=== PATIENT | female | born 1945 | race Caucasian/White ===

== ENCOUNTER 2017-01-03 00:31 | Observation (INO) ==
[2017-01-03 01:41] LABS: Bilirubin,Urine Negative (Negative); Blood,Urine Trace (Negative); Clarity,Urine Cloudy (Clear); Color,Urine Yellow (Yellow); Glucose,Urine (UA) Normal (Normal); Ketones,Urine Negative (Negative); Leukocyte Esterase,Urine Large (Negative); Nitrite,Urine Positive (Negative); PH,Urine 7.5 pH Units (5.0-8.0); Protein,Urine Negative (Neg-Trace); Specific Gravity,Urine 1.008 (1.010-1.025); Urobilinogen,Urine Normal (Normal)
[2017-01-03 01:44] LABS: Bacteria,Urine Many per hpf (None-Few); Hyaline Casts,Urine None Seen per lpf (None-Few); RBC,Urine 0-3 per hpf (0-3); Squamous Epithelial Cell,Urine None Seen per lpf (None-Few); WBC,Urine TNTC per hpf (0-3)
[2017-01-03 01:59] LABS: Basophils % 0.2 %; Eosinophils # 0.1 K/mcL (0.0-0.6); Eosinophils % 1.1 %; Hematocrit 23.4 % (35.3-44.9); Immature Granulocytes % 0.4 % (0-4); Lymphocytes # 2.9 K/mcL (0.6-4.6); Mean Corpuscular HGB Conc 32.1 g/dL (31.6-35.5); Mean Corpuscular Hemoglobin 26.3 pg (28.0-33.3); Mean Corpuscular Volume 82.1 fL (83.0-100.0); Mean Platelet Volume 9.1 fL (9.4-12.4); Monocytes # 0.5 K/mcL (0.0-1.3); Monocytes % 4.8 %; Neutrophils # 6.1 K/mcL (1.6-8.9); Platelet Count 368 K/mcL (140-400); Red Blood Count 2.85 M/mcL (3.82-4.97); Red Cell Distribution Width 16.8 % (11.5-14.5); Segmented Neutrophils % 63.5 %
[2017-01-03 02:06] LABS: INR 1.2; Prothrombin Time 12.5 Seconds (9.4-12.1)
[2017-01-03 02:16] LABS: BUN/Creatinine Ratio 25 (6-26); Blood Urea Nitrogen 15 mg/dL (7-20); Calcium 9.5 mg/dL (8.6-10.8); Carbon Dioxide 29 mEq/L (19-29); Chloride 94 mEq/L (98-109); Glucose 133 mg/dL (70-99); Osmolality,Calculated 277 (280-300); Potassium 4.1 mEq/L (3.5-4.5); Sodium 132 mEq/L (136-145); eGFR For African Americans > 60 (> 60); eGFR For Non-African Americans > 60 (> 60)
[2017-01-03 02:25] LABS: Hemoglobin 7.5 g/dL (11.5-15.4)
[2017-01-03] MEDS ORDERED: cefTRIAXone 1,000 MG in Water for inj. (sterile) 10 ML IVP ONE (02:44)
--- NOTE | 2017-01-03 02:44 | Emergency Department Note ---
START Narrative - START START: I examined this patient and my medical decision-making was reviewed with the Resident Physician. I agree with the documented findings, disposition and treatment plan as described except to the extent set forth below. 71 year old female who has a history of anemia without need for tranfusion and history of CHF and states that she has had increased swelling to her bilateral legs in a ddiitio nto right hip pain and overall weakness anf fatigue. Liyah has a hgb of 7.5 and UTI. We will treat her with rocephin for her UTI and do a fecal hemmocult to rule out GI bleed although her BUN/crn is normal. Liyah will be admitted to medicine.
[2017-01-03] MEDS ORDERED: *HR* OxyCODONE/APAP 5/325 TABLET PO ONE (03:02)
[2017-01-03 03:09] LABS: Albumin 2.9 g/dL (3.5-5.0); Albumin/Globulin Ratio 0.9 (1.1-2.2); Bilirubin,Direct 0.2 mg/dL (0.0-0.5); Bilirubin,Indirect 0.1 mg/dL (0.0-1.2); Bilirubin,Total 0.3 mg/dL (0.2-1.2); Globulin 3.4 g/dL (2.4-3.5); Total Protein 6.3 g/dL (6.0-8.3)
--- NOTE | 2017-01-03 03:54 | Emergency Department Note ---
Disposition Clinical Impression: Anemia Qualifiers: Anemia type: unspecified type Qualified Code(s): D64.9 - Anemia, unspecified UTI (urinary tract infection) Qualifiers: Urinary tract infection type: site unspecified Hematuria presence: without hematuria Qualified Code(s): N39.0 - Urinary tract infection, site not specified CHF (congestive heart failure) Qualifiers: Congestive heart failure type: unspecified congestive heart failure type Congestive heart failure chronicity: unspecified congestive heart failure chronicity Qualified Code(s): I50.9 - Heart failure, unspecified Disposition: Admitted As Inpatient Condition: Good Referrals: NONE,PCP [Primary Care Provider] - Forms: ED Satisfaction Letter General Adult HPI - General Chief complaint: ED Urogenital-Female Stated complaint: SWELLING TO LEGS Time Seen by Provider: 01/03/17 00:46 Source: patient, family Limitations: no limitations Nursing Notes Reviewed: Yes Vital Signs Reviewed: Yes - History of Present Illness HPI Narrative: Patient presents today for evaluation of multiple complaints. Patient has swelling to her legs bilaterally. Patient has +3 pitting edema through the thigh. Patient has complaints of urinary incontinence and urinating on herself. Patient states that she lives at home alone and takes care of herself. Patient has had worsening fatigue and a increasing difficult time getting around. Patient states that she occasionally feels cold but does not have objective fever. At the time of evaluation the patient is pale with concern for anemia. Patient will undergo further evaluation of possible UTI, CHF, anemia. Pain Scale: 8 - Related Data Previous Rx's Medication Instructions Recorded HYDROcodone/Acet 5/325 mg [Stigler 1 tab PO Q6H PRN #15 tab 08/22/16 5-325 mg] Allergies Allergy/AdvReac Type Severity Reaction Status Date / Time No Known Allergies Allergy Verified 01/03/17 00:32 All systems ED: reviewed and negative except as stated. Constitutional: Reports: chills, weakness. Denies: fever Cardiovascular: Reports: dyspnea on exertion, edema Respiratory: Reports: cough. Denies: dyspnea, wheezes Gastrointestinal: Denies: abdominal pain, nausea Genitourinary: Reports: frequency. 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 - Social History Smoking Status: Never smoker Smokeless Tobacco Status: No Alcohol use: Reports: none Drug use: Reports: none Physical Exam General appearance: Pale, weak, frail Eyes: anicteric sclerae, moist conjunctivae; PERRL HENT: Atraumatic; oropharynx clear with moist mucous membranes and no mucosal ulcerations Neck: Normal inspection; Trachea midline; FROM, supple Lungs: Rales with normal respiratory effort and no intercostal retractions CV: Tachycardia, no MRGs Abdomen: Soft, non-tender; no rebound or gaurding Extremities: Significant bilateral pitting edema through to the proximal thigh Skin: Normal temperature; no rash, ulcers or lesions Psych: Appropriate mood and affect Neuro: alert and oriented to person, place - General Limitations: no limitations General appearance: alert, in no apparent distress Course - Reevaluation(s) Reevaluation #1: Patient with anemia rectal exam performed. The patient's rectal vault was completely devoid of stool. Study not sent. Patient will need a guaiac for further evaluation of possible GI bleed. Reevaluation #2: Significant UTI. Ceftriaxone given. Patient's chest x-ray shows pulmonary edema without elevated BNP. Lasix not given at this time. No respiratory distress. Will allow hospitalist team to further discuss this management. - Consultations Consultation #1: Discussed with hospitalist. Dr. Emil jacobson Vital Signs Temperature 98.2 F 01/03/17 00:32 Pulse Rate 110 01/03/17 00:32 Respiratory Rate 16 01/03/17 00:32 Blood Pressure 158/72 01/03/17 00:32 O2 Sat by Pulse Oximetry 91 01/03/17 00:32 Temperature 98.2 F 01/03/17 00:32 Pulse Rate 98 01/03/17 02:21 Respiratory Rate 16 01/03/17 02:21 Blood Pressure 131/59 01/03/17 02:21 O2 Sat by Pulse Oximetry 99 01/03/17 02:21 Oxygen Delivery Oxygen Delivery Nasal Cannula Medical Decision Making - Medical Records Medical records reviewed: Yes I reviewed the patient's medical records. - Lab Data Lab results reviewed: Yes I reviewed the patient's lab results. Result diagrams: 01/03/17 01:46 01/03/17 01:46 Lab Results 01/03/17 01/03/1701/03/17 Range/Units 01:32 01:46 01:46 WBC (4.3-11.1) K/mcL RBC (3.82-4.97) M/mcL Hgb (11.5-15.4) g/dL Hct (35.3-44.9) % MCV (83.0-100.0) fL MCH (28.0-33.3) pg MCHC (31.6-35.5) g/dL RDW (11.5-14.5) % Plt Count (140-400) K/mcL MPV (9.4-12.4) fL Immature Gran % (0-4) % Seg Neutrophils % % Lymphocytes % % Monocytes % % Eosinophils % % Basophils % % Neutrophils # (1.6-8.9) K/mcL Lymphocytes # (0.6-4.6) K/mcL Monocytes # (0.0-1.3) K/mcL Eosinophils # (0.0-0.6) K/mcL Basophils # (0.0-0.2) K/mcL Immature Plt Fraction (1.1-6.1) % PT 12.5 H (9.4-12.1) Seconds INR 1.2 Sodium (136-145) mEq/L Potassium (3.5-4.5) mEq/L Chloride (98-109) mEq/L Carbon Dioxide (19-29) mEq/L BUN (7-20) mg/dL Creatinine (0.57-1.11) mg/dL Est GFR ( Amer) (> 60) Est GFR (Non-Af Amer) (> 60) BUN/Creatinine Ratio (6-26) Glucose (70-99) mg/dL Calculated Osmolality (280-300) Calcium (8.6-10.8) mg/dL Total Bilirubin 0.3 (0.2-1.2) mg/dL Direct Bilirubin 0.2 (0.0-0.5) mg/dL Indirect Bilirubin 0.1 (0.0-1.2) mg/dL AST 12 (5-34) Units/L ALT 6 (0-55) Units/L Alkaline Phosphatase 64 (38-126) Units/L Troponin I (0-0.03) ng/mL B-Natriuretic Peptide (0-100) pg/mL Serum Total Protein 6.3 (6.0-8.3) g/dL Albumin 2.9 L (3.5-5.0) g/dL Globulin 3.4 (2.4-3.5) g/dL Albumin/Globulin Ratio 0.9 L (1.1-2.2) Urine Color Yellow (Yellow) Urine Clarity Cloudy A (Clear) Urine pH 7.5 (5.0-8.0) pH Units Ur Specific [place] 1.008 L (1.010-1.025) Urine Protein Negative (Neg-Trace) mg/dL Urine Glucose (UA) Normal (Normal) mg/dL Urine Ketones Negative (Negative) mg/dL Urine Blood Trace H (Negative) Urine Nitrite Positive A (Negative) Urine Bilirubin Negative (Negative) Urine Urobilinogen Normal (Normal) mg/dL Ur Leukocyte Esterase Large H (Negative) Urine Microscopic RBC 0-3 (0-3) per hpf Urine Microscopic WBC TNTC H (0-3) per hpf Ur Squamous Epith Cells None Seen (None-Few) per lpf Urine Bacteria Many H (None-Few) per hpf Hyaline Casts None Seen (None-Few) per lpf Ur Culture Indicated? YES A (NO) 01/03/17 01/03/17 01/03/17 Range/Units 01:46 01:46 01:46 WBC 9.6 (4.3-11.1) K/mcL RBC 2.85 L (3.82-4.97) M/mcL Hgb 7.5 L (11.5-15.4) g/dL Hct 23.4 L (35.3-44.9) % MCV 82.1 L (83.0-100.0) fL MCH 26.3 L (28.0-33.3) pg MCHC 32.1 (31.6-35.5) g/dL RDW 16.8 H (11.5-14.5) % Plt Count 368 (140-400) K/mcL MPV 9.1 L (9.4-12.4) fL Immature Gran % 0.4 (0-4) % Seg Neutrophils % 63.5 % Lymphocytes % 30.0 % Monocytes % 4.8 % Eosinophils % 1.1 % Basophils % 0.2 % Neutrophils # 6.1 (1.6-8.9) K/mcL Lymphocytes # 2.9 (0.6-4.6) K/mcL Monocytes # 0.5 (0.0-1.3) K/mcL Eosinophils # 0.1 (0.0-0.6) K/mcL Basophils # 0.0 (0.0-0.2) K/mcL Immature Plt Fraction 2.0 (1.1-6.1) % PT (9.4-12.1) Seconds INR Sodium 132 L (136-145) mEq/L Potassium 4.1 (3.5-4.5) mEq/L Chloride 94 L (98-109) mEq/L Carbon Dioxide 29 (19-29) mEq/L BUN 15 (7-20) mg/dL Creatinine 0.61 (0.57-1.11) mg/dL Est GFR ( Amer) > 60 (> 60) Est GFR (Non-Af Amer) > 60 (> 60) BUN/Creatinine Ratio 25 (6-26) Glucose 133 H (70-99) mg/dL Calculated Osmolality 277 L (280-300) Calcium 9.5 (8.6-10.8) mg/dL Total Bilirubin (0.2-1.2) mg/dL Direct Bilirubin (0.0-0.5) mg/dL Indirect Bilirubin (0.0-1.2) mg/dL AST (5-34) Units/L ALT (0-55) Units/L Alkaline Phosphatase (38-126) Units/L Troponin I (0-0.03) ng/mL B-Natriuretic Peptide 152 H (0-100) pg/mL Serum Total Protein (6.0-8.3) g/dL Albumin (3.5-5.0) g/dL Globulin (2.4-3.5) g/dL Albumin/Globulin Ratio (1.1-2.2) Urine Color (Yellow) Urine Clarity (Clear) Urine pH (5.0-8.0) pH Units Ur Specific [place] (1.010-1.025) Urine Protein (Neg-Trace) mg/dL Urine Glucose (UA) (Normal) mg/dL Urine Ketones (Negative) mg/dL Urine Blood (Negative) Urine Nitrite (Negative) Urine Bilirubin (Negative) Urine Urobilinogen (Normal) mg/dL Ur Leukocyte Esterase (Negative) Urine Microscopic RBC (0-3) per hpf Urine Microscopic WBC (0-3) per hpf Ur Squamous Epith Cells (None-Few) per lpf Urine Bacteria (None-Few) per hpf Hyaline Casts (None-Few) per lpf Ur Culture Indicated? (NO) 01/03/17 Range/Units 01:46 WBC (4.3-11.1) K/mcL RBC (3.82-4.97) M/mcL Hgb (11.5-15.4) g/dL Hct (35.3-44.9) % MCV (83.0-100.0) fL MCH (28.0-33.3) pg MCHC (31.6-35.5) g/dL RDW (11.5-14.5) % Plt Count (140-400) K/mcL MPV (9.4-12.4) fL Immature Gran % (0-4) % Seg Neutrophils % % Lymphocytes % % Monocytes % % Eosinophils % % Basophils % % Neutrophils # (1.6-8.9) K/mcL Lymphocytes # (0.6-4.6) K/mcL Monocytes # (0.0-1.3) K/mcL Eosinophils # (0.0-0.6) K/mcL Basophils # (0.0-0.2) K/mcL Immature Plt Fraction (1.1-6.1) % PT (9.4-12.1) Seconds INR Sodium (136-145) mEq/L Potassium (3.5-4.5) mEq/L Chloride (98-109) mEq/L Carbon Dioxide (19-29) mEq/L BUN (7-20) mg/dL Creatinine (0.57-1.11) mg/dL Est GFR ( Amer) (> 60) Est GFR (Non-Af Amer) (> 60) BUN/Creatinine Ratio (6-26) Glucose (70-99) mg/dL Calculated Osmolality (280-300) Calcium (8.6-10.8) mg/dL Total Bilirubin (0.2-1.2) mg/dL Direct Bilirubin (0.0-0.5) mg/dL Indirect Bilirubin (0.0-1.2) mg/dL AST (5-34) Units/L ALT (0-55) Units/L Alkaline Phosphatase (38-126) Units/L Troponin I 0.00 (0-0.03) ng/mL B-Natriuretic Peptide (0-100) pg/mL Serum Total Protein (6.0-8.3) g/dL Albumin (3.5-5.0) g/dL Globulin (2.4-3.5) g/dL Albumin/Globulin Ratio (1.1-2.2) Urine Color (Yellow) Urine Clarity (Clear) Urine pH (5.0-8.0) pH Units Ur Specific [place] (1.010-1.025) Urine Protein (Neg-Trace) mg/dL Urine Glucose (UA) (Normal) mg/dL Urine Ketones (Negative) mg/dL Urine Blood (Negative) Urine Nitrite (Negative) Urine Bilirubin (Negative) Urine Urobilinogen (Normal) mg/dL Ur Leukocyte Esterase (Negative) Urine Microscopic RBC (0-3) per hpf Urine Microscopic WBC (0-3) per hpf Ur Squamous Epith Cells (None-Few) per lpf Urine Bacteria (None-Few) per hpf Hyaline Casts (None-Few) per lpf Ur Culture Indicated? (NO) - Radiology Data Radiology results reviewed: Yes I reviewed the patient's radiology results. - EKG Data EKG #1 EKG attestation: Yes I reviewed and interpreted this EKG. EKG results narrative: EKG shows sinus tachycardia with nonspecific T-wave abnormalities. Ventricular rate 110. AL 128. QRS 90. QTC 379. Patient has no significant ST elevations or depressions. No EKG for comparison.
--- NOTE | 2017-01-03 05:16 | Internal Med History&Physical ---
Date of Encounter: 01/03/17 Time of Encounter: 04:00 Assessment and Plan (1) Acute cystitis with hematuria Current visit: Yes Status: Acute -Patient with pyuria on urinalysis. -Continue IV ceftriaxone. (2) Anemia Current visit: Yes Status: Acute -Patient with a hemoglobin of 7.5. -Will order stool occult test. -Will transfuse patient 2 units of packed red blood cells. Qualifiers: Anemia type: iron deficiency Qualified Code(s): D50.9 - Iron deficiency anemia, unspecified (3) CHF (congestive heart failure) Current visit: Yes Status: Acute -Patient with bilateral lower extremity edema on exam and was found to have mild pulmonary edema on chest x-ray with a slightly elevated BNP of 152. -Will order echocardiogram and give patient IV Lasix 40 mg 1 Qualifiers: Congestive heart failure type: unspecified congestive heart failure type Congestive heart failure chronicity: unspecified congestive heart failure chronicity Qualified Code(s): I50.9 - Heart failure, unspecified (4) Right hip pain Current visit: Yes Status: Acute -Patient complains of right hip/leg pain. -Hip x-ray showed no acute osseous abnormality; status post internal fixation of the right hip. -Consult physical therapy for possible placement to correction facility for strength/reconditioning in addition to rehabilitation of right hip. (5) Diabetes Current visit: Yes Status: Acute -She reports a history of diabetes. -Monitor blood glucose levels. Qualifiers: Qualified Code(s): E11.9 - Type 2 diabetes mellitus without complications (6) Mood disorder Current visit: Yes Status: Acute -Patient emotionally labile during exam. -Will continue to monitor. (7) DVT prophylaxis Current visit: Yes Status: Acute -SCDs Internal Medicine - H&P: HPI Admitted From: Home Plans for Post Hospital Care: Transfer [facility] Facility History of present illness: Patient is a 71-year-old female with past medical history significant for diabetes, iron deficiency anemia, mood disorder and CHF who presents to the ER on 01/03/17 with right leg pain. Patient is a very poor historian and lives by herself and grandchildren who were at the bedside without much help with history. Patient was very emotionally labile on exam but reports of vague symptoms of not feeling well in addition to right leg/hip discomfort. Grandchildren who are at the bedside and checks on her periodically were concerned about her lower extremity edema and decided to bring her into the ER for evaluation. In the ER, patient was found to have pyuria on urinalysis in addition to anemia. In addition patient was found to have mild pulmonary edema on chest x- ray with a slightly elevated BNP of 152. Hip x-ray showed no acute osseous abnormality; status post internal fixation of the right hip. Patient will be admitted to the medical surgical floor for UTI, anemia and CHF exacerbation. Past Med Surg Social Fam HX - Past Medical History Medical history: diabetes, GERD, hyperlipidemia, hypertension Psychiatric history: anxiety - Social History Smoking Status: Never smoker Smokeless Tobacco Status: No Alcohol use: none Drug use: none Internal Medicine - H&P: Meds HYDROcodone/Acet 5/325 mg [[place] 5-325 mg] 1 tab PO Q6H PRN #15 tab 08/22/16 [Rx ] 3 Allergy/AdvReac Type Severity Reaction Status Date / Time No Known Allergies Allergy Verified 01/03/17 00:32 All Systems PM: A 10-system review of systems was performed and is negative for pertinent findings except as documented above in the HPI. - Constitutional Vitals: Temp Pulse Resp BP Pulse Ox 98.2 F 98 18 148/72 99 01/03/17 00:32 01/03/17 02:21 01/03/17 04:07 01/03/17 04:07 01/03/17 02:21 General appearance: Present: A&O X 3 - Head Head exam: Present: normocephalic - Eye Eye exam: Present: normal appearance - ENT ENT exam: Present: mucous membranes dry - Respiratory Respiratory exam: Present: CTAB. Absent: accessory muscle use, rales, rhonchi, wheezes - Cardiovascular Cardiovascular exam: Present: RRR, +S1, +S2. Absent: diastolic murmur, gallop, rubs, systolic murmur - GI/Abdominal GI/Abdominal exam: Present: normal bowel sounds, soft, no peritoneal signs. Absent: distended, tenderness - Expanded Lower Extremities Exam Lower Leg exam: Present: swelling (Bilateral lower extremity edema) - Neurological Exam Neurological exam: Present: oriented X3 - Psychiatric Psychiatric exam: Present: anxious, depressed (Emotionally labile) - Skin Additional comments: Patient appears pale Internal Med - H&P Results - Labs CBC & Chem 7: 01/03/17 01:46 01/03/17 01:46
[2017-01-03] MEDS ORDERED: Furosemide 40 MG/4 ML VIAL IVP ONE (05:34)
[2017-01-03] MEDS ORDERED: Naloxone 0.4 MG/ML INJ IVP PRN (05:45)
[2017-01-03 06:57] LABS: Basophils % 0.5 %; Eosinophils # 0.1 K/mcL (0.0-0.6); Eosinophils % 1.4 %; Hematocrit 24.6 % (35.3-44.9); Hemoglobin 7.7 g/dL (11.5-15.4); Immature Granulocytes % 0.5 % (0-4); Lymphocytes # 3.3 K/mcL (0.6-4.6); Lymphocytes % 38.3 %; Mean Corpuscular HGB Conc 31.3 g/dL (31.6-35.5); Mean Corpuscular Hemoglobin 25.8 pg (28.0-33.3); Mean Corpuscular Volume 82.6 fL (83.0-100.0); Mean Platelet Volume 9.3 fL (9.4-12.4); Monocytes # 0.5 K/mcL (0.0-1.3); Monocytes % 5.7 %; Neutrophils # 4.7 K/mcL (1.6-8.9); Platelet Count 307 K/mcL (140-400); Red Blood Count 2.98 M/mcL (3.82-4.97); Red Cell Distribution Width 16.9 % (11.5-14.5); Segmented Neutrophils % 53.6 %
[2017-01-03] MEDS: cefTRIAXone 1,000 MG in Water for inj. (sterile) 10 ML IVP SCH (09:34)
[2017-01-03] MEDS ORDERED: SUMAtriptan succinate 50 MG TABLET PO PRN (12:04)
[2017-01-03] MEDS ORDERED: traMADol 50 MG TABLET PO PRN (12:04)
[2017-01-03] MEDS ORDERED: Dextrose Gel 15 GM PO PRN ×2 (12:06)
[2017-01-03] MEDS ORDERED: *HR* Dextrose 50 % in Water (Syg) 50 ML SYRINGE IVP PRN (12:06)
[2017-01-03] MEDS ORDERED: D5% in Water 1,000 ML IVC PRN (12:06)
--- NOTE | 2017-01-03 12:13 | Event Note ---
Date of Encounter: 01/03/17 Time of Encounter: 11:15 Patient is a 71y/o female admitted for management of CHF exacerbation, symptomatic anemia, and UTI. Patient seen and examined at bedside. Reports of improvement in her shortness of breath, saturating well on nasal cannula, states at home she only wears oxygen at bedtime. Noted to have drop in H&H, pt to receive 2units PRBC transfusions. Will closely monitor for signs of volume overload Has history of iron deficiency anemia and is currently on iron supplementation at home, denies any acute blood in stools. Will obtain iron studies, ferritin, vit B12, and folate levels prior to blood transfusion Will continue IV diuresis at this time IV abx for UTI. f/u urine cultures will resume all other home medications.
[2017-01-03 13:01] LABS: % Iron Saturation 9 % (15-50); Iron 26 mcg/dL (50-170); Transferrin 204 mg/dL (180-382)
[2017-01-03 13:24] LABS: Ferritin 75 ng/ml (5-204)
[2017-01-03 13:37] LABS: Folate 14.1 ng/mL (7.0-31.4)
[2017-01-03] MEDS: *HR* LORazepam 0.5 MG TABLET PO PRN ×2 (14:00→22:13)
[2017-01-03] MEDS: *HR* OxyCODONE/APAP 5/325 TABLET PO PRN ×2 (14:00→19:19)
[2017-01-03] MEDS: Insulin LISPRO 300 UNITS/3 ML VIAL SQ SCH ×2 (17:08→22:12)
[2017-01-03] MEDS: Furosemide 20 MG/2 ML VIAL IVP SCH (17:09)
[2017-01-03] MEDS: traZODone 50 MG TABLET PO SCH (22:13)
[2017-01-03] MEDS ORDERED: 0.9 % Sodium Chloride 250 ML ONE (22:51)
[2017-01-04] MEDS: *HR* OxyCODONE/APAP 5/325 TABLET PO PRN ×4 (01:59→21:49)
[2017-01-04 04:42] LABS: Basophils % 0.5 %; Eosinophils # 0.1 K/mcL (0.0-0.6); Eosinophils % 1.4 %; Hematocrit 27.6 % (35.3-44.9); Hemoglobin 8.9 g/dL (11.5-15.4); Immature Granulocytes % 0.3 % (0-4); Lymphocytes # 2.4 K/mcL (0.6-4.6); Lymphocytes % 40.5 %; Mean Corpuscular HGB Conc 32.2 g/dL (31.6-35.5); Mean Corpuscular Hemoglobin 26.4 pg (28.0-33.3); Mean Corpuscular Volume 81.9 fL (83.0-100.0); Mean Platelet Volume 9.4 fL (9.4-12.4); Monocytes # 0.6 K/mcL (0.0-1.3); Monocytes % 10.5 %; Neutrophils # 2.8 K/mcL (1.6-8.9); Platelet Count 317 K/mcL (140-400); Red Blood Count 3.37 M/mcL (3.82-4.97); Red Cell Distribution Width 16.5 % (11.5-14.5); Segmented Neutrophils % 46.8 %
[2017-01-04 04:57] LABS: Phosphorous 3.7 mg/dL (2.3-4.7)
[2017-01-04 05:00] LABS: BUN/Creatinine Ratio 23 (6-26); Blood Urea Nitrogen 14 mg/dL (7-20); Calcium 9.7 mg/dL (8.6-10.8); Carbon Dioxide 30 mEq/L (19-29); Chloride 95 mEq/L (98-109); Glucose 148 mg/dL (70-99); Osmolality,Calculated 283 (280-300); Sodium 135 mEq/L (136-145); eGFR For African Americans > 60 (> 60); eGFR For Non-African Americans > 60 (> 60)
--- NOTE | 2017-01-04 05:45 | Electrocardiograph Report ---
[address] [address] Test Date: 2017-01-03 Pat Name: Laxmi Rand Department: 103 Room: [facility] Gender: F Chemistry Specialist: : [id number] Requested By: Inocente Mai Order Number: [id number] Reading MD: Montrell Cameron MD Measurements Intervals [place] Rate: 110 P: 52 GA: 128 QRS: 52 QRSD: 90 T: 49 QT: 314 QTc: 379 Interpretive Statements SINUS TACHYCARDIA Electronically Signed On 01-04-2017 5:43:49 EST by Montrell Cameron MD
[2017-01-04] MEDS: Insulin LISPRO 300 UNITS/3 ML VIAL SQ SCH ×4 (07:41→21:48)
[2017-01-04] MEDS: amLODIPine 5 MG TABLET PO SCH (08:25)
[2017-01-04] MEDS: cefTRIAXone 1,000 MG in Water for inj. (sterile) 10 ML IVP SCH (08:27)
[2017-01-04] MEDS: Furosemide 20 MG/2 ML VIAL IVP SCH ×2 (08:29→16:54)
[2017-01-04] MEDS: *HR* LORazepam 0.5 MG TABLET PO PRN (11:50)
--- NOTE | 2017-01-04 12:55 | Internal Med Progress Note ---
Date of Encounter: 01/04/17 Time of Encounter: 11:04 - Assessment and plan (1) CHF exacerbation Current Visit: Yes Status: Acute Assessment and plan: Echo: LVEF 60-65% with Mild LV diastolic dysfunction, moderate pulmonary hypertension will continue IV diuresis Monitor I/Os, daily weight, fluid restriction diet O2 supplementation as needed will continue to monitor Qualifiers: Congestive heart failure type: diastolic Qualified Code(s): I50.33 - Acute on chronic diastolic (congestive) heart failure (2) Anemia Current Visit: Yes Status: Acute Assessment and plan: History of iron deficiency anemia anemia workup consistent with Iron def awaiting FOBT s/p one unit PRBC transfusion, patient refused second unit repeat H&H within acceptable range no acute bleeding reported will continue to closely monitor Qualifiers: Anemia type: iron deficiency Iron deficiency anemia type: unspecified iron deficiency Qualified Code(s): D50.9 - Iron deficiency anemia, unspecified (3) UTI (urinary tract infection) Current Visit: Yes Status: Acute Assessment and plan: Urine culture prelim positive for gram negative khai will continue IV ceftriaxone f/u official urine cultures Qualifiers: Urinary tract infection type: site unspecified Hematuria presence: without hematuria Qualified Code(s): N39.0 - Urinary tract infection, site not specified (4) Diabetes Current Visit: Yes Status: Chronic Assessment and plan: SS insulin algorithm monitor FS and BG ADA diet Qualifiers: Diabetes mellitus type: type 2 Diabetes mellitus complication status: with unspecified complications Diabetes mellitus senior care insulin use: unspecified terminal clerk insulin use status Qualified Code(s): E11.8 - Type 2 diabetes mellitus with unspecified complications (5) DVT prophylaxis Current Visit: Yes Status: Acute Assessment and plan: SCD (6) Hypomagnesemia Current Visit: Yes Status: Acute Assessment and plan: Mg supplemented continue to monitor electrolytes and replace as needed - Subjective Interval history: Patient seen and examined at bedside. Sitting in chair and reports of feeling better compared to previous day. Reports of generalized body pain and states she takes her pain medications on regular basis at home. REports of being constipated but is passing gas. 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 Absent: diastolic murmur, gallop, rubs, systolic murmur - GI/Abdominal GI/Abdominal exam: Present: normal bowel sounds, soft, no peritoneal signs. Absent: distended, tenderness - Extremities Exam Extremities exam: Present: pedal edema, warm, radial pulses palpable and symmetrical. Absent: calf tenderness - Neurological Exam Neurological exam: Present: alert, oriented X3 - Psychiatric Psychiatric exam: Present: normal affect, normal mood Internal Medicine: Result - Labs CBC & Chem 7: 01/04/17 04:03 01/04/17 04:03 Labs: Short CBC 01/04/17 Range/Units 04:03 WBC 5.9 (4.3-11.1) K/mcL Hgb 8.9 L (11.5-15.4) g/dL Hct 27.6 L (35.3-44.9) % Plt Count 317 (140-400) K/mcL Neutrophils # 2.8 (1.6-8.9) K/mcL BMP 01/04/17 04:03 Sodium 135 L Potassium 4.0 Chloride 95 L Carbon Dioxide 30 H BUN 14 Creatinine 0.62 Glucose 148 H Calcium 9.7 - ABG Interpretation ABG results: PT/INR, D-dimer PT 12.5 Seconds (9.4-12.1) H 01/03/17 01:46 - Impressions Impressions Echocardiogram 01/03/17 05:35 Impressions: LVEF 60-65%. Normal LV chamber size, wall thickness and function. Mild left ventricular diastolic dysfunction. Normal right ventricular structure and function. Moderate pulmonary hypertension. Estimated RVSP is 51 mmHg. No significant valvular dysfunction. Left Ventricular Wall Motion: Rest Echo Findings All wall segments showed normal motion. Findings: Study Quality * Technically adequate exam. ECG Findings * Normal sinus rhythm. Left Ventricle * LVEF 60-65%. * Normal LV chamber size, wall thickness and function. * Mild left ventricular diastolic dysfunction. Right Ventricle * Normal right ventricular structure and function. Left Atrium * Mildly dilated left atrium. Right Atrium * Normal right atrial size. Aortic Valve * No aortic stenosis. * No aortic regurgitation. * Aortic valve not well visualized. Mitral Valve * Normal mitral valve structure and function. * No mitral stenosis. * No mitral regurgitation. Tricuspid Valve * Normal tricuspid valve structure and function. * Trace tricuspid regurgitation. * Moderate pulmonary hypertension. * Estimated RVSP is 51 mmHg. * Estimated RA pressure is 5 mmHg. Pulmonic Valve * Pulmonic valve is not well visualized. * No pulmonic regurgitation. Aorta * Normally sized aortic root. Pericardium * The pericardium appears normal. IVC * Normal IVC dimensions and inspiratory collapse. Pulmonary Artery * Normal visualized portions of the main pulmonary artery. - VTE Documentation of Mechanical Device: Venous foot pump, device Consult Discharge Plan - Plan Referrals: NONE,PCP [Primary Care Provider] -
[2017-01-04] MEDS: Sennosides/Docusate Sodium TABLET PO SCH (21:49)
[2017-01-04] MEDS: traZODone 50 MG TABLET PO SCH (21:49)
[2017-01-05] MEDS: *HR* OxyCODONE/APAP 5/325 TABLET PO PRN ×4 (05:07→21:02)
[2017-01-05 05:32] LABS: Basophils % 0.3 %; Eosinophils # 0.2 K/mcL (0.0-0.6); Hematocrit 30.2 % (35.3-44.9); Hemoglobin 9.5 g/dL (11.5-15.4); Immature Granulocytes % 0.5 % (0-4); Lymphocytes % 39.2 %; Mean Corpuscular HGB Conc 31.5 g/dL (31.6-35.5); Mean Corpuscular Hemoglobin 26.1 pg (28.0-33.3); Mean Platelet Volume 9.5 fL (9.4-12.4); Monocytes # 0.5 K/mcL (0.0-1.3); Neutrophils # 3.9 K/mcL (1.6-8.9); Platelet Count 368 K/mcL (140-400); Red Blood Count 3.64 M/mcL (3.82-4.97); Red Cell Distribution Width 16.7 % (11.5-14.5)
[2017-01-05 05:46] LABS: BUN/Creatinine Ratio 24 (6-26); Blood Urea Nitrogen 15 mg/dL (7-20); Calcium 9.7 mg/dL (8.6-10.8); Carbon Dioxide 33 mEq/L (19-29); Chloride 96 mEq/L (98-109); Glucose 172 mg/dL (70-99); Magnesium 1.5 mg/dL (1.6-2.6); Osmolality,Calculated 287 (280-300); Phosphorous 3.5 mg/dL (2.3-4.7); Potassium 3.9 mEq/L (3.5-4.5); Sodium 136 mEq/L (136-145); eGFR For African Americans > 60 (> 60); eGFR For Non-African Americans > 60 (> 60)
[2017-01-05] MEDS: Sennosides/Docusate Sodium TABLET PO SCH ×2 (08:38→21:02)
[2017-01-05] MEDS: Insulin LISPRO 300 UNITS/3 ML VIAL SQ SCH ×4 (08:39→21:03)
[2017-01-05] MEDS: amLODIPine 5 MG TABLET PO SCH (08:39)
[2017-01-05] MEDS: cefTRIAXone 1,000 MG in Water for inj. (sterile) 10 ML IVP SCH (08:40)
[2017-01-05] MEDS: Furosemide 20 MG/2 ML VIAL IVP SCH ×2 (08:44→15:26)
[2017-01-05] MEDS: *HR* LORazepam 0.5 MG TABLET PO PRN (13:11)
--- NOTE | 2017-01-05 15:30 | Internal Med Progress Note ---
Date of Encounter: 01/05/17 Time of Encounter: 12:00 - Assessment and plan (1) CHF (congestive heart failure) Current Visit: Yes Status: Acute Assessment and plan: Improving. Patient having good urine output. This was far she has had almost 6 L negative fluid balance. We will continue Lasix intravenously for today. Plan to transition to oral Lasix beginning tomorrow. Moderate risk for complications Qualifiers: Congestive heart failure type: diastolic Congestive heart failure chronicity: acute on chronic Qualified Code(s): I50.33 - Acute on chronic diastolic (congestive) heart failure (2) Anemia Current Visit: Yes Status: Acute Assessment and plan: Anemia improved after blood transfusion. Continue iron supplementation Qualifiers: Anemia type: iron deficiency Iron deficiency anemia type: unspecified iron deficiency Qualified Code(s): D50.9 - Iron deficiency anemia, unspecified (3) Diabetes Current Visit: Yes Status: Chronic Assessment and plan: Pre-meal blood sugars are elevated. We will increase sliding scale coverage. Qualifiers: Diabetes mellitus type: type 2 Diabetes mellitus complication status: with unspecified complications Diabetes mellitus joint terminal attack controller insulin use: unspecified joint terminal attack controller insulin use status Qualified Code(s): E11.8 - Type 2 diabetes mellitus with unspecified complications (4) DVT prophylaxis Current Visit: Yes Status: Acute Assessment and plan: With SCDs (5) Hypomagnesemia Current Visit: Yes Status: Acute Assessment and plan: Improving. We will replete orally (6) UTI (urinary tract infection) Current Visit: Yes Status: Acute Assessment and plan: With Klebsiella pneumonia. Currently on Rocephin. We will transition to oral antibiotics Qualifiers: Urinary tract infection type: site unspecified Hematuria presence: without hematuria Qualified Code(s): N39.0 - Urinary tract infection, site not specified - Subjective Interval history: Patient is awake and alert. Denies any shortness of breath or chest pain. Complains of swelling in both her lower extremities which is improving. Denies any dysuria. No nausea or vomiting. - Constitutional Vitals: Temp Pulse Resp BP Pulse Ox 97.9 F 84 16 127/76 95 01/05/17 14:18 01/05/17 14:18 01/05/17 14:18 01/05/17 14:18 01/05/17 14:18 General appearance: Present: cooperative, A&O X 3, no acute distress, answers questions appropriately - Neck Neck exam general surgery: Present: supple, trachea midline. Absent: lymphadenopathy - Respiratory Respiratory exam: Present: CTAB. Absent: accessory muscle use, rales, rhonchi, wheezes - Cardiovascular Cardiovascular exam: Present: RRR, +S1, +S2. Absent: diastolic murmur, gallop, rubs, systolic murmur - Extremities Exam Extremities exam: Present: pedal edema (Bilateral pitting pedal edema), warm, radial pulses palpable and symmetrical. Absent: calf tenderness, cyanotic - Neurological Exam Neurological exam: Present: alert, oriented X3, no focal deficits. Absent: facial droop, speech deficit - Skin Skin exam: Present: dry, intact Internal Medicine: Result - Labs CBC & Chem 7: 01/05/17 04:40 01/05/17 04:40 Labs: Short CBC 01/05/17 Range/Units 04:40 WBC 7.5 (4.3-11.1) K/mcL Hgb 9.5 L (11.5-15.4) g/dL Hct 30.2 L (35.3-44.9) % Plt Count 368 (140-400) K/mcL Neutrophils # 3.9 (1.6-8.9) K/mcL BMP 01/05/17 04:40 Sodium 136 Potassium 3.9 Chloride 96 L Carbon Dioxide 33 H BUN 15 Creatinine 0.62 Glucose 172 H Calcium 9.7 - ABG Interpretation ABG results: PT/INR, D-dimer PT 12.5 Seconds (9.4-12.1) H 01/03/17 01:46 - VTE Documentation of Mechanical Device: Intermittent pneumatic compression device Consult Discharge Plan - Plan Referrals: NONE,PCP [Primary Care Provider] -
[2017-01-05] MEDS: Furosemide 20 MG TABLET PO SCH (18:39)
[2017-01-05] MEDS ORDERED: Acetaminophen 325 MG TABLET PO PRN (20:52)
[2017-01-05] MEDS: traZODone 50 MG TABLET PO SCH (21:03)
[2017-01-06] MEDS: *HR* LORazepam 0.5 MG TABLET PO PRN (04:39)
[2017-01-06 05:39] LABS: BUN/Creatinine Ratio 28 (6-26); Blood Urea Nitrogen 17 mg/dL (7-20); Calcium 9.7 mg/dL (8.6-10.8); Carbon Dioxide 34 mEq/L (19-29); Chloride 95 mEq/L (98-109); Glucose 161 mg/dL (70-99); Osmolality,Calculated 283 (280-300); Potassium 3.9 mEq/L (3.5-4.5); Sodium 134 mEq/L (136-145); eGFR For African Americans > 60 (> 60); eGFR For Non-African Americans > 60 (> 60)
[2017-01-06] MEDS: *HR* OxyCODONE/APAP 5/325 TABLET PO PRN (05:48)
[2017-01-06 07:16] VITALS: BP 147/67
[2017-01-06] MEDS: Furosemide 20 MG TABLET PO SCH (08:29)
[2017-01-06] MEDS: Sennosides/Docusate Sodium TABLET PO SCH (08:29)
[2017-01-06] MEDS: amLODIPine 5 MG TABLET PO SCH (08:29)
[2017-01-06] MEDS: Insulin LISPRO 300 UNITS/3 ML VIAL SQ SCH (08:40)
[2017-01-06] MEDS ORDERED: levoFLOXacin 500 MG TABLET PO SCH (09:00)
--- NOTE | 2017-01-06 10:35 | Discharge Summary ---
Date of Encounter: 01/06/17 Time of Encounter: 10:31 - Discharge Diagnosis (1) CHF (congestive heart failure) Priority: Primary Status: Acute Qualifiers: Congestive heart failure type: diastolic Congestive heart failure chronicity: acute on chronic Qualified Code(s): I50.33 - Acute on chronic diastolic (congestive) heart failure (2) UTI (urinary tract infection) Priority: Secondary Status: Acute Qualifiers: Urinary tract infection type: acute cystitis Hematuria presence: without hematuria Qualified Code(s): N30.00 - Acute cystitis without hematuria (3) Anemia Priority: Secondary Status: Acute Qualifiers: Anemia type: iron deficiency Iron deficiency anemia type: unspecified iron deficiency Qualified Code(s): D50.9 - Iron deficiency anemia, unspecified (4) Diabetes Priority: Secondary Status: Chronic Qualifiers: Diabetes mellitus type: type 2 Diabetes mellitus complication status: with unspecified complications Diabetes mellitus termite renewal inspector insulin use: unspecified halfway insulin use status Qualified Code(s): E11.8 - Type 2 diabetes mellitus with unspecified complications (5) DVT prophylaxis Priority: Secondary Status: Acute (6) Hypomagnesemia Priority: Secondary Status: Acute - Discharge Medications Prescriptions: Furosemide [Lasix] 20 mg PO BIDDIURETIC #60 tablet levoFLOXacin [Levaquin] 500 mg PO DAILY #5 tablet Home Medications: Atorvastatin [Lipitor] 40 mg PO HS 01/03/17 [History] Cyclobenzaprine HCl 5 mg PO TID PRN 01/03/17 [History] Docusate Sodium [Dok] 100 mg PO TID 01/03/17 [History] Ferrous Sulfate [Iron] 325 mg PO DAILY 01/03/17 [History] LORazepam [Ativan] 0.5 mg PO TID 01/03/17 [History] Oxycodone HCl/Acetaminophen [Percocet 5-325 mg Tablet] 1 tab PO Q4H PRN [History] Polyethylene Glycol 3350 [MiraLAX Powder Bulk 17.9 Oz] 1 scoop PO DAILY [History] SUMAtriptan Succinate [Imitrex] 100 mg PO Q2H PRN 01/03/17 [History] SitaGLIPtin [Januvia] 100 mg PO DAILY 01/03/17 [History] Tramadol HCl [Ultram] 100 mg PO QID PRN 01/03/17 [History] Trazodone HCl 150 mg PO HS 01/03/17 [History] Zolpidem [Ambien] 5 mg PO HS 01/03/17 [History] amLODIPine [Norvasc] 5 mg PO DAILY 01/03/17 [History] metFORMIN [Glucophage] 850 mg PO TID 01/03/17 [History] Furosemide [Lasix] 20 mg PO BIDDIURETIC #60 tablet 01/06/17 [Rx] levoFLOXacin [Levaquin] 500 mg PO DAILY #5 tablet 01/06/17 [Rx] Allergies/Adverse Reactions: 3 Allergy/AdvReac Type Severity Reaction Status Date / Time No Known Allergies Allergy Verified 01/03/17 00:32 Date of admission: 01/03/17 03:38 Primary care physician: PCP NONE Consults: 01/03/17 05:48 Consult to Physical Therapy [CONS] Routine Comment: Evaluate, develop and implement POC Reason for Consult: evalute home safey vs SNF Consult to Lawn And Garden Technician [CONS] Routine Reason for SW Consult: SNF placement? 01/03/17 05:58 Consult to Lawn And Garden Technician [CONS] Routine Reason for SW Consult: Yee for ECF placement 01/03/17 11:07 OT [Consult to Occupational Therapy] [CONS] Routine Comment: Evaluate, develop and implement POC Reason for Consult: evaluation/discharge planning Discharging clinician: Char Menendez Anticipated date of discharge: 01/06/17 - Patient Status Disposition: Home Health Service Condition: Good Functional capacity at discharge: independent ambulation Overall status at discharge: patient is progressing back to baseline - Discharge Instructions Instructions: Heart Failure (DC) Follow Up With: NONE,PCP [Primary Care Provider] - (within 1 week) Forms: ED Satisfaction Letter Additional Instructions: Follow-up appointments: If there is not an appointment listed below, please call your physician and schedule a follow-up appointment. If you have congestive heart failure and your symptoms return, make an appointment with your physician. Medication List: Carry an up to date list of medications you are taking at all time. We have given you an updated medication list including any new medications that you have been prescribed. Please provide that list to your primary provider Symptoms: If your condition changes or you experience any of the following symptoms, notify your physician immediately: Unusual or worsening pain, fever, persistent nausea and vomiting, bleeding, increase in swelling (especially in your legs), sudden weight gain, extreme dizziness, chest pain, increased drainage or redness from a wound or incision. Go to the emergency department if you experience a problem with breathing. Weights: If you have a history of swelling or shortness of breath, weigh yourself daily and notify your physician if you have a weight gain of two or more pounds in one day or 5 or more pounds in a week. If you experience any of the warning signs for stroke: Sudden numbness or weakness of the face, arm or leg; especially on one side of the body, sudden confusion, trouble speaking or understanding, sudden trouble seeing in one or both eyes, sudden trouble walking, dizziness, loss of balance or coordination, sudden sever headache with no cause; Call 911 or go to the emergency room. Stroke is a medical emergency. Some risk factors for stroke: Age, cigarette smoking, diabetes, excessive alcohol consumption, family history , high blood pressure, overweight, physical inactivity, prior stroke, heart attack, diagnosis of carotid artery stenosis or other artery disease. If you smoke, STOP: Smoking or tobacco use significantly increases your risk of heart and lung disease. Your chance of disease greatly increases if you continue to smoke. For more information, call the [employer] tobacco quit line for smoking cessation QUIT-NOW ( ) - Diet and Activity Activity: as per physical therapy, increase activity as tolerated Diet: diabetic diet, low fat, low cholesterol, low salt diet Hospital course: Ms. Rand is a 71 year old female patient with a history of diabetes, iron deficiency anemia, mood disorder, congestive heart failure who was hospitalized here with acute urinary tract infection/cystitis. She was treated with IV antibiotics. She also had been having increased bilateral lower extremity pedal edema and pulmonary edema on chest x-ray with a slightly elevated BNP. She was diagnosed with acute on chronic congestive heart failure and was started on treatment for this with Lasix. She has had good response to Lasix and has had about 7 L of negative fluid balance. She feels much better now. Her renal function has remained stable. At this time, she is clinically stable for discharge. She has been recommended skilled rehabilitation placement per physical therapy but she wishes to go home. She will be provided with home health and physical therapy instead. Patient did receive 1 unit of packed red blood cell transfusion here for anemia due to iron deficiency. Her urine culture was positive for Klebsiella pneumoniae and patient will be discharged on levofloxacin to complete treatment course. She will be discharged on Lasix 20 mg twice daily for heart failure. She can follow up further with her primary care provider after discharge for further management. 2-D echocardiogram done here 2-D echocardiogram done here showed an EF of 60-65% with mild left ventricular diastolic dysfunction and moderate pulmonary hypertension. - Time Spent with Patient Total time spent providing and/or coordinating discharge services: Greater than 30 minutes (32 min) - Constitutional Vitals: Temp Pulse Resp BP Pulse Ox 98.0 F 99 18 147/67 97 01/06/17 07:13 01/06/17 07:13 01/06/17 07:13 01/06/17 07:13 01/06/17 07:13 General appearance: Present: cooperative, A&O X 3, no acute distress, answers questions appropriately - Respiratory Respiratory exam: Present: CTAB. Absent: accessory muscle use, rales, rhonchi, wheezes - Cardiovascular Cardiovascular exam: Present: RRR, +S1, +S2. Absent: diastolic murmur, gallop, rubs, systolic murmur - GI/Abdominal GI/Abdominal exam: Present: normal bowel sounds, soft, no peritoneal signs. Absent: distended, tenderness - Extremities Exam Extremities exam: Present: pedal edema (bilateral pitting- improving) - Neurological Exam Neurological exam: Present: CN II-XII intact, oriented X3, no focal deficits. Absent: facial droop, speech deficit - VTE Documentation of Mechanical Device: Intermittent pneumatic compression device
--- NOTE | 2017-01-06 10:38 | Physician Discharge Referral ---
Home Health/Hosp Referral Info Transfer to: Home Health Provider in Charge Post Discharge: PCP - Diagnosis (1) CHF (congestive heart failure) Priority: Primary Status: Acute (2) UTI (urinary tract infection) Priority: Secondary Status: Acute (3) Anemia Priority: Secondary Status: Acute (4) Diabetes Priority: Secondary Status: Chronic (5) DVT prophylaxis Priority: Secondary Status: Acute (6) Hypomagnesemia Priority: Secondary Status: Acute - Respiratory Orders Oxygen / L per min (2L/min at night and while lying down) Smoking Cessation: Smoking cessation has been advised. For more information, call the [place] Tobacco Quit Line at 5-548-GFAG-NOW. - Diet/Nutrition Diet/Nutrition Orders: Cardiac, No Concentrated Sweets (DIabetic) - Activity Activity Orders: Walker - Services Needed Following services are medically necessary services: Nursing, Physical Therapy, Occupational Therapy - Transfer Medications Prescriptions: Furosemide [Lasix] 20 mg PO BIDDIURETIC #60 tablet levoFLOXacin [Levaquin] 500 mg PO DAILY #5 tablet Home Medications: Atorvastatin [Lipitor] 40 mg PO HS 01/03/17 [History] Cyclobenzaprine HCl 5 mg PO TID PRN 01/03/17 [History] Docusate Sodium [Dok] 100 mg PO TID 01/03/17 [History] Ferrous Sulfate [Iron] 325 mg PO DAILY 01/03/17 [History] LORazepam [Ativan] 0.5 mg PO TID 01/03/17 [History] Oxycodone HCl/Acetaminophen [Percocet 5-325 mg Tablet] 1 tab PO Q4H PRN [History] Polyethylene Glycol 3350 [MiraLAX Powder Bulk 17.9 Oz] 1 scoop PO DAILY [History] SUMAtriptan Succinate [Imitrex] 100 mg PO Q2H PRN 01/03/17 [History] SitaGLIPtin [Januvia] 100 mg PO DAILY 01/03/17 [History] Tramadol HCl [Ultram] 100 mg PO QID PRN 01/03/17 [History] Trazodone HCl 150 mg PO HS 01/03/17 [History] Zolpidem [Ambien] 5 mg PO HS 01/03/17 [History] amLODIPine [Norvasc] 5 mg PO DAILY 01/03/17 [History] metFORMIN [Glucophage] 850 mg PO TID 01/03/17 [History] Furosemide [Lasix] 20 mg PO BIDDIURETIC #60 tablet 01/06/17 [Rx] levoFLOXacin [Levaquin] 500 mg PO DAILY #5 tablet 01/06/17 [Rx] Allergies/Adverse Reactions: 3 Allergy/AdvReac Type Severity Reaction Status Date / Time No Known Allergies Allergy Verified 01/03/17 00:32 Certification: Further, I certify that my clinical findings support that this patient is homebound (i.e. absences from home require considerable and taxing effort and are for medical reasons or jew services or infrequently or short duration when for other reasons) because: Homebound Reason: Patient requires assistance of a person or device to safely leave home Attestation: My signature below is to certify that this patient is under my care and that I, or nurse practitioner, or a physician's bacteriology research assistant working with me, has a face-to -face encounter with this patient.
== END 2017-01-06 12:04 | disposition home health service (06) ==
LOC: 3NENU 00:31 → EMEROO 00:31 → SUATTDRO 03:38 → 3NENU 04:15
PROVIDERS: ADMIT Internal Medicine; ATTEND Internal Medicine